=== PATIENT | male | born 1970 | race Caucasian/White ===

== ENCOUNTER → 2022-06-28 | Outpatient (CLI) | payer MEDICARE, OTHER | END | disposition home or self-care (01) | LOC: SHCH 07:35 | PROVIDERS: ATTEND Internal Medicine Cardiovascular Disease | DX: I87.2 Venous insufficiency (chronic) (peripheral) (principal) | CPT/HCPCS: 93970 ==

== ENCOUNTER → 2023-02-26 | Outpatient (CLI) | payer OTHER | END | disposition home or self-care (01) | LOC: RAH 09:52 | PROVIDERS: ATTEND Family Medicine | DX: M19.012 Primary osteoarthritis, left shoulder (principal); M25.512 Pain in left shoulder; M25.522 Pain in left elbow; M19.022 Primary osteoarthritis, left elbow | CPT/HCPCS: 73030; 73080 ==

== ENCOUNTER 2024-02-02 05:56 | Day surgery (SDC) | payer OTHER ==
[2024-01-29 09:09] VITALS: BP 126/80; PULSE 64; RESP 14; TEMP 98.1
[2024-02-02] VITALS (15 sets, daily range): BP systolic 112–127; BP diastolic 74–84; PULSE 66–88; RESP 14–17; TEMP 97.1–98.4
[~2024-02-02] VITALS: Ht 193 cm; Wt 96.1 kg
[~2024-02-02 05:56] MED LIST: APIX5TAB PO; BUPR-49 PO; FEXO-263 PO; FLEC50TA3 PO; LOSA50TA64 PO; MAGN100T PO; METO50TA18 PO
[2024-02-02] MEDS ORDERED: proPOFol 10 MG/ML 20ML VIAL IV ONE ×2 (07:08→11:19)
[2024-02-02] MEDS ORDERED: MIDAZOLAM HCL 1 MG/ML 2ML VIAL ONE (07:08)
[2024-02-02] MEDS ORDERED: FENTanyl CITRate PF 50 MCG/1 ML 2ML VIAL ONE ×2 (07:08→12:09)
[2024-02-02] MEDS ORDERED: rocuRONium bROMide 10MG/1ML 5ML VL ONE ×2 (07:08→08:03)
[2024-02-02] MEDS ORDERED: ondanSETRON 4MG INJ ONE (07:21)
[2024-02-02] MEDS ORDERED: phenylEPHRINE HCL 10 MG/ML 1ML VIAL IV ONE ×3 (07:21→10:47)
[2024-02-02] MEDS ORDERED: LIDOCAINE HCL 1% MDV 50ML VIAL ONE (07:43)
[2024-02-02] MEDS ORDERED: HEParin-NS 1,000 UNIT/500 ML 500 ML IV ONE ×2 (07:44→11:34)
[2024-02-02] MEDS ORDERED: HEParin 10,000 UNIT/10ML (1,000 UNIT/ML) VIAL ONE ×3 (07:44→11:14)
[2024-02-02] MEDS: 0.9%NACL 1000ML 1,000 ML IV ONE (07:48)
[2024-02-02] MEDS ORDERED: HEParin-NS 1,000 UNIT/500 ML 1,500 ML IV ONE (07:52)
[2024-02-02] MEDS ORDERED: PANTOPrazole 40 MG/VIAL IVP ONE (08:30)
[2024-02-02] MEDS ORDERED: ATROPINE 1MG SYG IVP ONE (08:39)
[2024-02-02] MEDS ORDERED: PROTamine SULFate 10 MG/ML 25ML VIAL IV ONE (11:51)
[2024-02-02] MEDS ORDERED: PANT40TA55 PO (12:41)
[2024-02-02] MEDS ORDERED: SUCR1ORA15 PO (12:41)
[2024-02-02] MEDS ORDERED: SUCRALFATE 1 GM TABLET PO ONE (13:30)
== END 2024-02-02 14:10 | disposition home or self-care (01) ==
LOC: DAH 05:56
PROVIDERS: ATTEND Internal Medicine Cardiovascular Disease
DX: I48.0 Paroxysmal atrial fibrillation (principal); I10 Essential (primary) hypertension; Z79.01 Long term (current) use of anticoagulants; Z79.899 Other long term (current) drug therapy
CPT/HCPCS: 93656; 93657; 85347 ×8; 36415; C1894 ×3; C1732 ×3; A4649 ×2; C1760 ×3; C1766; J3010 ×2; J7030; J3490 ×3; J1644 ×6; J2250; J2704 ×2; J2405; J2470; J2371 ×3; A4215; A4222; A4221; A4663; A4216; A4606; J2720; A4223 ×3; J0461

== ENCOUNTER → 2024-04-20 | Outpatient (CLI) | payer OTHER ==
[~2024-04-20] MED LIST changes: -FLEC50TA3 PO; -METO50TA18 PO; +PANT40TA55 PO; +SUCR1ORA15 PO
--- NOTE | 2024-04-20 10:20 | HMCIMG ---
ELBOW 2VWS LT HISTORY: Pain COMPARISON: None TECHNIQUE: 2 images of left elbow were obtained. FINDINGS: There is no acute displaced fracture or dislocation. Mild degenerative changes are seen. IMPRESSION: 1. Findings as described above.
--- NOTE | 2024-04-20 11:13 | HMCIMG ---
WRIST COMP 3+VWS LT HISTORY: Left wrist pain COMPARISON: None TECHNIQUE: 4 images of left wrist were obtained. FINDINGS: There is no acute displaced fracture or dislocation. Mild radiocarpal joint space narrowing is seen. Nondisplaced fracture cannot be completely excluded. Degenerative changes are seen. IMPRESSION: 1. Findings as described above.
--- NOTE | 2024-04-20 11:14 | HMCIMG ---
SHOULDER COMP 2+VWS LT HISTORY: Left wrist pain COMPARISON: None TECHNIQUE: 2 images of left shoulder were obtained. FINDINGS: There is no acute displaced fracture or dislocation. Joint space narrowing is seen. Degenerative changes are seen. IMPRESSION: 1. Findings as described above.
== END | disposition home or self-care (01) ==
LOC: RAH 09:02
PROVIDERS: ATTEND Internal Medicine Gastroenterology
DX: M19.012 Primary osteoarthritis, left shoulder (principal); M19.022 Primary osteoarthritis, left elbow; M19.032 Primary osteoarthritis, left wrist; M25.532 Pain in left wrist
CPT/HCPCS: 73030; 73070; 73110